=== PATIENT | female | born 1980 | race Caucasian/White ===

== ENCOUNTER 2017-02-22 14:35 | Inpatient (IN) | payer SELFPAY ==
[~2017-02-22] VITALS: Ht 160 cm; Wt 85.3 kg
[~2017-02-22 14:35] MED LIST: IBUP-2070 PO; PREN1TAB80 PO
[2017-02-22] MEDS ORDERED: RINGERS SOLUTION,LACTATED 1,000 ML IV SCH (15:24)
[2017-02-22] MEDS ORDERED: RINGERS SOLUTION,LACTATED 1,000 ML IV PRN (15:24)
[2017-02-22] MEDS ORDERED: OXYTOCIN 30 UNITS/LACT RINGERS 500 ML IV ONE (15:24)
[2017-02-22] MEDS ORDERED: LIDOCAINE HCL/PF 1% 30 ML VIAL INJ PRN (15:30)
[2017-02-22] MEDS ORDERED: CITRIC ACID/SODIUM CITRATE 30 ML SOLUTION UDCUP PO PRN (15:30)
[2017-02-22] MEDS ORDERED: METOCLOPRAMIDE HCL 5 MG/ML 2 ML VIAL IVP PRN (15:30)
[2017-02-22] MEDS ORDERED: FentaNYL CITRATE-PF 100 MCG/2 ML VIAL IVP PRN (15:30)
[2017-02-22] MEDS ORDERED: INFLUENZA VIRUS VACCINE QVS 2017-18 (3YR+)/PF 60 MCG/0.5 ML SYRINGE IM ONE (15:45)
[2017-02-22 17:56] LABS: BASOPHILS % (AUTO) 0.2 % (0.0-2.0); EOSINOPHILS % (AUTO) 0.2 % (1.0-6.0); HEMATOCRIT 33.2 % (36-46); HEMOGLOBIN 11.1 g/dL (12.0-16.0); LYMPHOCYTES # (AUTO) 0.9 K/uL (1.0-4.8); LYMPHOCYTES % (AUTO) 7.9 % (22.0-44.0); MEAN CORPUSCULAR HEMOGLOBIN 27.7 pg (26.0-34.0); MEAN CORPUSCULAR HGB CONC 33.5 G/dL (31.0-37.0); MEAN CORPUSCULAR VOLUME 83 fL (80-100); MONOCYTES # (AUTO) 0.5 K/uL (0.1-1.0); MONOCYTES % (AUTO) 4.1 % (2.0-9.0); NEUTROPHILS # (AUTO) 10.1 K/uL (1.8-7.7); PLATELET COUNT (AUTO) 199 K/uL (150-450); RED BLOOD CELL COUNT(AUTO) 4.02 MIL/uL (4.00-5.20); RED CELL DISTRIBUTION WIDTH 14.4 % (11.5-14.5); WHITE BLOOD COUNT (AUTO) 11.5 K/uL (4.5-11.0)
[2017-02-22] MEDS ORDERED: RINGERS SOLUTION,LACTATED 1,000 ML IV ONE (18:09)
[2017-02-22] MEDS ORDERED: BENZOCAINE 20%/MENTHOL 56 GM SPRAY CANISTER TP PRN (18:15)
[2017-02-22] MEDS ORDERED: GLYCERIN/WITCH HAZEL LEAF 40 PADS JAR TP PRN (18:15)
[2017-02-22] MEDS ORDERED: MEASLES/MUMPS/RUBELLA VACCINE, LIVE 0.5 ML/VIAL SQ ONE (18:15)
[2017-02-22] MEDS ORDERED: LANOLIN 7 GM OINTMENT TP PRN (18:15)
[2017-02-22] MEDS ORDERED: OxyCODONE HCL/ACETAMINOPHEN 5-325 MG TABLET PO PRN ×2 (18:15)
[2017-02-22 18:17] LABS: NEUTROPHILS % (AUTO) 87.6 % (40.0-70.0)
[2017-02-22] MEDS ORDERED: OXYGEN THERAPY IH SCH (20:00)
[2017-02-22] MEDS: MAGNESIUM HYDROXIDE SUSPENSION 30 ML UDCUP PO SCH (21:20)
[2017-02-22] MEDS: IBUPROFEN 600 MG TABLET PO PRN (21:21)
[2017-02-23] MEDS: MAGNESIUM HYDROXIDE SUSPENSION 30 ML UDCUP PO SCH (09:00)
[2017-02-23] MEDS ORDERED: IBUP-2070 PO (09:43)
[2017-02-23] MEDS ORDERED: FERR-89 PO (09:44)
[2017-02-23] MEDS ORDERED: DSS100 PO (09:44)
[2017-02-23] MEDS: IBUPROFEN 600 MG TABLET PO PRN (11:39)
== END 2017-02-23 16:30 | disposition home or self-care (01) | DRG 775 ==
LOC: OBSVTOIN 14:35 → 4S 14:35
PROVIDERS: ADMIT Obstetrics & Gynecology; ATTEND Obstetrics & Gynecology
PROC: 10E0XZZ Delivery of Products of Conception, External Approach (ICD-10-PCS; principal; 2017-02-22)
DX: O69.81X0 Labor and delivery complicated by cord around neck, without compression, not applicable or unspecified (principal); Z88.0 Allergy status to penicillin; Z37.0 Single live birth; Z3A.40 40 weeks gestation of pregnancy
CPT/HCPCS: 86592; 86850; 86900; 86901; 87340; 90471